=== PATIENT | female | born 1970 | race Caucasian/White ===

== ENCOUNTER 2019-05-28 18:16 | Emergency (ER) | payer MEDICAID ==
[2019-05-28 19:32] LABS: URINE PH (Dip) POC 6.5 (5.0-8.5)
[2019-05-28 19:32] LABS: URINE BLOOD (Dip) POC Trace-lysed (NEGATIVE); URINE GLUCOSE (Dip) POC Negative (NEGATIVE); URINE KETONES (Dip) POC Negative (NEGATIVE); URINE LEUKOCYTE EST (Dip) POC Negative (NEGATIVE); URINE NITRITE (Dip) POC Negative (NEGATIVE); URINE TOTAL PROTEIN POC Trace (NEGATIVE)
[2019-05-28 20:20] LABS: ADD MAN DIFF? NO
[2019-05-28] MEDS: SOD CHLORIDE 0.9% 100 ML (20:22)
[2019-05-28] MEDS: IOHEXOL 100 ML (20:22)
[2019-05-28 20:23] LABS: BASOPHIL # 0.1 10^3/ul (0.0-0.1); BASOPHILS % 0.8 % (0.0-2.0); EOSINOPHILS # 0.5 10^3/ul (0.0-0.5); EOSINOPHILS % 4.6 % (0.0-7.0); HEMATOCRIT 40.8 % (37.0-47.0); HEMOGLOBIN 13.8 g/dl (12.0-16.0); LYMPHOCYTES # 2.9 10^3/ul (0.8-2.9); LYMPHOCYTES % 29.3 % (15.0-51.0); MEAN CORPUSCULAR HEMOGLOBIN 31.7 pg (29.0-33.0); MEAN CORPUSCULAR HGB CONC 33.8 g/dl (32.0-37.0); MEAN CORPUSCULAR VOLUME 93.6 fl (82.0-101.0); MONOCYTE # 0.7 10^3/ul (0.3-0.9); NEUTROPHIL # 5.7 10^3/ul (1.6-7.5); PLATELET COUNT 291 10^3/UL (140-415); RED BLOOD COUNT 4.36 10^6/ul (4.20-5.40); RED CELL DISTRIBUTION WIDTH 12.6 % (11.5-14.5)
[2019-05-28 20:23] LABS: WHITE BLOOD COUNT 9.8 10^3/ul (4.8-10.8)
[2019-05-28 20:30] LABS: ANION GAP 9 (5-13); BLOOD UREA NITROGEN 9 mg/dl (7-20); CALCIUM 9.7 mg/dl (8.4-10.2); CARBON DIOXIDE 30 mmol/L (21-31); CHLORIDE 103 mmol/L (97-110); CHOL/HDL RATIO 4.4 RATIO; CHOLESTEROL 176 mg/dl (100-200); CREATINE KINASE 138 IU/L (23-200); CREATININE 0.57 mg/dl (0.44-1.00); Estimated GFR > 60 mL/min (>60); GLUCOSE 122 mg/dl (70-220); HDL CHOLESTEROL 40 mg/dl (34-88); LDL CHOLESTEROL,CALCULATED 107 mg/dl; POTASSIUM 3.8 mmol/L (3.5-5.1); SODIUM 142 mmol/L (135-144); TRIGLYCERIDES 144 mg/dl (0-149)
[2019-05-28 20:31] LABS: ETHANOL < 10.0 mg/dl (0-0)
[2019-05-28 20:37] LABS: HEMOGLOBIN A1C 5.4 % (0-5.9)
[2019-05-28 20:42] LABS: CK INDEX 0.4; CK-MB 0.52 ng/ml (0.0-2.4); INR 0.91; PROTIME 12.4 Sec (11.9-14.9); TROPONIN-I < 0.012 ng/ml (0.000-0.120)
[2019-05-28 20:43] LABS: PARTIAL THROMBOPLASTIN TIME 27.3 Sec (23.0-35.0)
[2019-05-28 20:50] LABS: ADD UMIC YES; UR ASCORBIC ACID NEGATIVE (NEGATIVE); UR BILIRUBIN (Dip) NEGATIVE (NEGATIVE); UR BLOOD (Dip) 1+ mg/dL (NEGATIVE); UR CLARITY SLIGHTLY CLOUDY (CLEAR); UR COLOR YELLOW (YELLOW); UR GLUCOSE (Dip) NEGATIVE (NEGATIVE); UR KETONES (Dip) NEGATIVE (NEGATIVE); UR LEUKOCYTE ESTERASE (Dip) NEGATIVE Leu/ul (NEGATIVE); UR NITRITE (Dip) NEGATIVE (NEGATIVE); UR RBC 2 /HPF (0-5); UR SPECIFIC GRAVITY (Dip) 1.011 (1.003-1.030); UR SQUAMOUS EPITHELIAL CELL FEW /HPF (FEW); UR TOTAL PROTEIN (Dip) NEGATIVE (NEGATIVE); UR UROBILINOGEN (Dip) NEGATIVE (NEGATIVE); UR WBC 3 /HPF (0-5)
[2019-05-28] MEDS: DIPHENHYDRAMINE 50 MG INJ IV (21:34)
[2019-05-28] MEDS: SOD CHLORIDE 0.9% 1,000 ML IV (21:34)
[2019-05-28] MEDS: PROCHLORPERAZINE 10 MG INJ IV (21:34)
[2019-05-28] MEDS: KETOROLAC 30 MG INJ IV (21:35)
[2019-05-28 23:18] LABS: AMPHETAMINE/METHAMPHETAMINE Negative (NEGATIVE); BARBITURATES Negative (NEGATIVE); BENZODIAZEPINES Negative (NEGATIVE); CANNABINOIDS Negative (NEGATIVE); COCAINE Negative (NEGATIVE); OPIATES Negative (NEGATIVE)
== END 2019-05-28 23:37 | disposition home or self-care (01) ==
LOC: E/R 18:16
DX: G43.909 Migraine, unspecified, not intractable, without status migrainosus (principal); R07.9 Chest pain, unspecified
CPT/HCPCS: 36415; 70450; 70496; 70498; 71045; 80048; 80061; 80307; 81001; 81003; 81025; 82550; 82553; 82962; 83036; 84484; 85025; 85610; 85730; 93005; 96361; 96374; 96375; 99285-25